=== PATIENT | female | born 1935 | race Caucasian/White ===

== ENCOUNTER 2023-10-15 13:48 | Emergency (ER) | payer MEDICARE, OTHER, SELFPAY ==
[2023-10-15 13:59] VITALS: BP 133/62; BMI 23.1
[2023-10-15 14:23] LABS: Urine Albumin 1+ (Neg - Trace); Urine Bilirubin 1+ (Negative); Urine Character Clear (Clear); Urine Color Yellow; Urine Glucose Negative (Negative); Urine Ketone Trace (Negative); Urine Leukocyte 2+ (Negative); Urine Nitrite Negative (Negative); Urine Occult Blood 2+ (Negative); Urine Specific Gravity 1.025 (<1.030); Urine Urobilinogen 1+ (Neg - 1+)
[2023-10-15 14:31] LABS: Urine Bacteria Moderate (Negative); Urine Squamous Cell 0-2 /LPF (Few)
[2023-10-15 16:54] LABS: % Basophils 0.6 % (0-2); % Eosinophils 1.7 % (0-6); % Immature Granulocytes 0.3 % (0-0.5); % Lymphocytes 23.9 % (20.5-51.1); % Monocytes 5.6 % (1.7-9.3); % Neutrophils 67.9 % (42.2-75.2); Absolute Eosinophils 0.1 10^3/uL (0-0.7); Absolute Lymphocytes 1.6 10^3/uL (1.2-3.4); Absolute Monocytes 0.4 10^3/uL (0.1-0.6); Absolute Neutrophils 4.5 10^3/uL (1.4-6.5); Hemoglobin 13.8 g/dL (12.0-16.0); Mean Corp Hgb Conc. 35.4 g/dL (33.0-37.0); Mean Corpuscular Hgb 31.3 pg (27.0-31.0); Mean Corpuscular Volume 88.4 fL (81.0-99.0); Mean Platelet Volume 9.5 fL (7.4-10.4); Nucleated Red Blood Cells % 0 %; Platelet Count 174 10^3/uL (130-400); Red Blood Cell Count 4.41 10^6/uL (4.20-5.40); Red Cell Dist. Width 13.1 % (11.5-14.5); White Blood Cell Count 6.6 10^3/uL (4.8-10.8)
[2023-10-15 17:23] LABS: ALT (SGPT) 17 U/L (0-35); AST (SGOT) 29 U/L (14-36); Albumin 4.5 g/dl (3.5-5.0); Alkaline Phosphatase 100 U/L (38-126); Blood Urea Nitrogen 23 mg/dl (7-17); Calcium 10.1 mg/dl (8.4-10.2); Carbon Dioxide 30 mmol/L (22-30); Chloride 104 mmol/L (98-107); Estimated Creatinine Clearance 43 ml/min; Glucose 100 mg/dl (70-99); Lipase 76 U/L (23-300); Potassium 4.2 mmol/L (3.5-5.1); Sodium 139 mmol/L (135-145); Total Bilirubin 0.6 mg/dl (0.2-1.3); Total Protein 6.8 g/dl (6.3-8.2); eGFR > 60.00
[2023-10-15] MEDS: KEFLEX 500 MG PO (17:55)
[2023-10-15 18:00] VITALS: BP 151/63
--- NOTE | 2023-10-15 21:56 | ED.GENMED ---
History of Present Illness
General
Chief Complaint: Urinary Symptoms
Source: patient
Exam Limitations: none
Time Seen by Provider: 10/15/23 16:23
Nursing documentation reviewed up to this point in time: agreed with
Travel History
Have you had any contact with someone who has COVID-19?: No
Do you have any symptoms of coronavirus? Fever > 100 degrees, chills, cough, shortness of breath, sore throat, loss of taste or smell, muscle aches, or headache?: No
History of Present Illness
History of Present Illness:
Patient to ED with complaint of dark urine. Noticed symptoms yesterday. No fever/chills, n/v/d. No back or abdominal pain. Brought to ED by daughter for eval.
Past History
Past History
ED Past Medical History: HTN, Hypercholesterolemia, Psychiatric (A/D) and Other (IBS, KIDNEY STONES)
ED Past Surgical History: Appendectomy
Social History
Tobacco: Non-smoker
Alcohol: None
Drug: None
Personal:
Living: with family
Employment: Retired
Family History
Family History: Hypertension
Review of Systems
Review of Systems
Allergies reviewed?: Yes
All Other Systems: ROS reviewed and negative except as documented in HPI and ROS
Constitutional: Reports no symptoms
EENT: Reports no symptoms
Respiratory: Reports no symptoms
Cardiac: Reports no symptoms
ABD/GI: Reports no symptoms
: Reports dark urine
Musculoskeletal: Reports no symptoms
Skin: Reports no symptoms
Neurological: Reports no symptoms
Psychiatric: Reports no symptoms
Phy Exam
General Physical Exam
General Presentation: well appearing and no apparent distress
General age: appears stated age
General Skin: warm
General Habitus: normal
General Mental: alert
Gastrointestinal Exam
Gastrointestinal Exam: normal bowel sounds, non tender, soft, no organomegaly, no pulsatile mass, non distended, no cva tenderness and cva tenderness
Musculoskeletal Exam
Musculoskeletal Exam: full ROM and neuro vasc intact
Skin Exam
Skin Exam: normal color and warm/dry
Psychiatric Exam
Psychiatric Exam: normal mood/affect
Course
Orders/Labs/Results
Orders:
Orders
10/15/23 14:16
Urinalysis Reflex To Culture Urgent
Date Specimen was Collected: 10/15/23
Time Specimen was Collected: 13:58
Urine Microscopic Reflex Cult Urgent
Urine Culture Urgent
DANISH Source: U
Specimen Description:
Date Specimen was Collected: 10/15/23
Time Specimen was Collected: 13:58
10/15/23 16:43
Complete Blood Count/With Diff Urgent
Comprehensive Metabolic Panel Urgent
Lipase Urgent
10/15/23 17:35
Cephalexin Monohydrate [Keflex] 500 mg PO NOW STA
Abnormal Lab Results
10/15/23 10/15/23
14:16 16:43
MCH 31.3 H pg
(27.0-31.0)
BUN 23 H mg/dl
(7-17)
Glucose 100 H mg/dl
(70-99)
Urine Ketones Trace A
(Negative)
Ur Occult Blood Reflex 2+ A
(Negative)
Urine Bilirubin 1+ A
(Negative)
Leukocyte Esterase Rfl 2+ A
(Negative)
Urine RBC 3-6 A /HPF
(0-2)
Urine WBC (Reflex) 11-15 A /HPF
(0-5)
Urine Bacteria (Reflex) Moderate A
(Negative)
Urine Albumin (Reflex) 1+ A
(Neg - Trace)
10/15/23 16:43
10/15/23 16:43
Vital Signs
Initial and Last Documented VS:
Initial Vital Signs
Pulse Resp BP Pulse Ox
88 16 133/62 95
10/15/23 13:59 10/15/23 13:59 10/15/23 13:59 10/15/23 13:59
Last Documented Vital Signs
Pulse Resp BP Pulse Ox
92 16 151/63 95
10/15/23 18:00 10/15/23 18:00 10/15/23 18:00 10/15/23 18:00
*Critical Care Note
Total Time (30-74mins, 75-104mins- exclusive of procedures): Not Applicable
ED Attending Note
-
Portions of this chart may have been created with voice recognition software.� Occasional wrong word or��sound alike� substitutions may have occurred due to the inherent limitations of voice recognition software.
Discharge Plan
Departure
Patient Disposition: Home (Routine Discharge)
Date of Disposition: 10/15/23
Time of Disposition: 17:36
Patient with high blood pressure during this ER visit?: No
Condition: Good
Covid-19: Not Applicable
Discharge Problem:
Urinary tract infection
Instructions: Urinary Tract Infection, Adult (DC)
Prescriptions:
New
cephalexin 500 mg capsule
500 mg PO BID Qty: 10 0RF
No Action
escitalopram oxalate 20 MG tablet
10 mg PO DAILY
amlodipine 5 MG tablet
10 mg PO DAILY
simvastatin 20 MG tablet
20 mg PO QPM
lisinopril 10 MG tablet
10 mg PO DAILY
levothyroxine 112 MCG tablet
112 mcg PO DAILY AT 0700
acetaminophen [Tylenol Extra Strength] 500 MG tablet
1,000 mg PO Q6HPRN PRN (Reason: mild pain) Qty: 1 0RF
Vitamin D3
1 tab PO DAILY
pantoprazole 40 MG tablet,delayed release (DR/EC)
40 mg PO DAILY 0RF
diazepam 5 MG tablet
5 mg PO HS Qty: 2 0RF
Referrals:
West Yuen DO [Family Provider] - Follow up in 2-3 days
Interventions
Interventions:
*Risk Screen - Suicide Last Done: 10/15/23 13:59
*General Assessment Last Done: 10/15/23 18:00
*Neglect/Abuse Screening Last Done: 10/15/23 13:59
ED- Fall Risk Assessment Last Done: 10/15/23 18:00
*ED COVID-19 Vaccine History Last Done: 10/15/23 13:59
*Nursing Disposition Last Done: 10/15/23 18:00
ED-Female Genitourinary Assessment Last Done: 10/15/23 16:47
Discharge Date and Time
Discharge Date/Time: 10/15/23 18:00
== END 2023-10-15 18:00 | disposition home or self-care (01) ==
LOC: EMR 13:48
PROVIDERS: Emergency Medicine; Nurse Practitioner; EMERGENCY PHYSICIAN Emergency Medicine; FAMILY PHYSICIAN Family Medicine
DX: N39.0 Urinary tract infection, site not specified (principal)
CPT/HCPCS: 99283; 80053; 81003; 81015; 83690; 85025; 87086

== ENCOUNTER 2023-11-16 23:17 | Emergency (ER) | payer MEDICARE, OTHER, SELFPAY ==
[2023-11-16 23:19] VITALS: BP 145/68; BMI 23.9
[2023-11-17] VITALS: BP 112/70
--- NOTE | 2023-11-17 00:37 | ED.GENMED ---
History of Present Illness
General
Chief Complaint: Fall
Source: patient and family (Daughter)
Exam Limitations: none
Time Seen by Provider: 11/16/23 23:39
Nursing documentation reviewed up to this point in time: agreed with
Travel History
Have you had any contact with someone who has COVID-19?: No
Do you have any symptoms of coronavirus? Fever > 100 degrees, chills, cough, shortness of breath, sore throat, loss of taste or smell, muscle aches, or headache?: No
History of Present Illness
History of Present Illness:
The patient is an 87-year-old woman brought in by ambulance for a head injury that occurred 4 days ago. Patient reports that she was trying to take her trash out to her neighbor and unfortunately tripped in her living room, hitting the back of her
head. There was no loss consciousness. There are no vision changes. Patient denies nausea and vomiting. She denies neck pain. She reports she felt weak after the fall and had to crawl around but has been able to walk since then. She comes in
with complaints of pain in her head and complains of a bump at the back of her head. She is not on blood thinners. Patient denies any recent cough, fever, shortness of breath, chest pain, and dizziness.
Past History
Past History
ED Past Medical History: HTN, Hypercholesterolemia, Psychiatric (A/D) and Other (IBS, KIDNEY STONES)
ED Past Surgical History: Appendectomy
Social History
Tobacco: Non-smoker
Alcohol: None
Drug: None
Personal:
Living: with family
Employment: Retired
Family History
Family History: Hypertension
Review of Systems
Review of Systems
Allergies reviewed?: Yes
Other source history: family
All Other Systems: ROS reviewed and negative except as documented in HPI and ROS
Constitutional: Reports no symptoms
EENT: Reports no symptoms
Respiratory: Reports no symptoms
Cardiac: Reports no symptoms
ABD/GI: Reports no symptoms
: Reports no symptoms
Musculoskeletal: Reports no symptoms
Skin: Reports no symptoms
Neurological: Reports headache
Hematologic/Lymphatic: Reports no symptoms
Psychiatric: Reports no symptoms
Phy Exam
Physical Exam
Physical Exam:
Physical Exam
General: no apparent distress, not acutely ill conversational
Neck: supple. Nontender
Heart: s1/s2 regular rate and rhythm, no murmur. equal radial pulses.
Lungs: no acute respiratory distress. clear bilaterally, no vertebral spine tenderness
Abdomen: normal bowel sounds. not tender. no CVAT
Neuro: alert and oriented. no focal neurological deficits, extraocular muscles intact. Cranial nerves equal and symmetric bilaterally
Skin: no rash
Psychiatric: well kept. interactive and cooperative
Extremities: no edema. no calf tenderness. negative homans. good distal pulses
Course
Orders/Labs/Results
Orders:
Orders
11/16/23 23:[address] [CT Head W/o Iv Contrast] Urgent
Comment:
Reason For Exam: fall with head strike
11/17/23 00:28
Naproxen [Naprosyn] 500 mg PO NOW STA
Vital Signs
Initial and Last Documented VS:
Initial Vital Signs
Temp Pulse Resp BP Pulse Ox
99.1 F 96 16 145/68 95
11/16/23 23:19 11/16/23 23:19 11/16/23 23:19 11/16/23 23:19 11/16/23 23:19
Last Documented Vital Signs
Temp Pulse Resp BP Pulse Ox
99.1 F 92 16 112/70 92
11/16/23 23:19 11/17/23 00:00 11/17/23 00:00 11/17/23 00:00 11/17/23 00:00
*Radiology
Radiology exam reviewed: radiology read reviewed
*Pulse Oximetry
Patient hypoxic: no
*EKG
Interpreted by ED Provider?: NA
*Engineering Technologist Interpretation
Rate: Engineering Technologist- N/A
*Critical Care Note
Total Time (30-74mins, 75-104mins- exclusive of procedures): Not Applicable
Data Reviewed
Source: family
Patient Management
Social determinants of health affecting care: Living situation and Strong social support
Escalation/DeEscalation of care consider admission/obs:
Patient continues to look look well. CT shows no acute abnormality and patient has not had any nausea, vomiting or dizziness. No C-spine tenderness to suggest C-spine injury patient. she denies all symptoms such as cough, fever, and generalized
weakness therefore, decision made to not do blood work. Patient is clear that it was a mechanical trip and fall
ED Attending Note
-
Portions of this chart may have been created with voice recognition software.� Occasional wrong word or��sound alike� substitutions may have occurred due to the inherent limitations of voice recognition software.
Discharge Plan
Departure
Patient Disposition: Home (Routine Discharge)
Date of Disposition: 11/17/23
Time of Disposition: 00:30
Patient with high blood pressure during this ER visit?: No
Condition: Good
Covid-19: Not Applicable
Discharge Problem:
Closed head injury
Instructions: Head Injury in Adults (DC)
Prescriptions:
No Action
escitalopram oxalate 20 MG tablet
10 mg PO DAILY
amlodipine 5 MG tablet
10 mg PO DAILY
simvastatin 20 MG tablet
20 mg PO QPM
lisinopril 10 MG tablet
10 mg PO DAILY
levothyroxine 112 MCG tablet
112 mcg PO DAILY AT 0700
acetaminophen [Tylenol Extra Strength] 500 MG tablet
1,000 mg PO Q6HPRN PRN (Reason: mild pain) Qty: 1 0RF
Vitamin D3
1 tab PO DAILY
pantoprazole 40 MG tablet,delayed release (DR/EC)
40 mg PO DAILY 0RF
diazepam 5 MG tablet
5 mg PO HS Qty: 2 0RF
cephalexin 500 mg capsule
500 mg PO BID Qty: 10 0RF
Referrals:
UNKNOWN - PT DOES,NOT KNOW [Unknown Provider] -
Activity Restrictions/Additional Instructions:
Return for vision changes or vomiting.
Interventions
Interventions:
*Risk Screen - Suicide Last Done: 11/16/23 23:19
*General Assessment Last Done: 11/16/23 23:19
*Neglect/Abuse Screening Last Done: 11/16/23 23:19
*ED COVID-19 Vaccine History Last Done: 11/16/23 23:19
*Nursing Disposition Last Done: 11/17/23 00:45
ED-Musculoskeletal Assessment Last Done: 11/16/23 23:19
ED- Neurological Assessment Last Done: 11/16/23 23:19
ED-Skin Assessment Last Done: 11/16/23 23:19
Discharge Date and Time
Discharge Date/Time: 11/17/23 00:45
== END 2023-11-17 00:45 | disposition home or self-care (01) ==
LOC: EMR 23:17
PROVIDERS: EMERGENCY PHYSICIAN Emergency Medicine; FAMILY PHYSICIAN Family Medicine
DX: S09.90XA Unspecified injury of head, initial encounter (principal); W01.198A Fall on same level from slipping, tripping and stumbling with subsequent striking against other object, initial encounter
CPT/HCPCS: 99284; 70450

== ENCOUNTER → 2023-12-15 12:51 | Outpatient (REF) | payer MEDICARE, OTHER, SELFPAY | LOC: DHCBC HW 12:51 | PROVIDERS: ATTENDING PHYSICIAN Internal Medicine; FAMILY PHYSICIAN Family Medicine | DX: I44.7 Left bundle-branch block, unspecified (principal); I34.0 Nonrheumatic mitral (valve) insufficiency | CPT/HCPCS: 93306 ==

== ENCOUNTER → 2024-09-27 12:56 | Outpatient (REF) | payer MEDICARE, OTHER, SELFPAY | LOC: HWRCS 12:56 | PROVIDERS: ATTENDING PHYSICIAN Internal Medicine; FAMILY PHYSICIAN Family Medicine | DX: I34.0 Nonrheumatic mitral (valve) insufficiency (principal); I34.2 Nonrheumatic mitral (valve) stenosis | CPT/HCPCS: 93306 ==

== ENCOUNTER 2025-03-01 17:44 | Emergency (ER) | payer MEDICARE, OTHER, SELFPAY ==
[2025-03-01 17:46] VITALS: BP 148/66
[2025-03-01 18:13] LABS: % Basophils 0.3 % (0-2); % Eosinophils 0.6 % (0-6); % Immature Granulocytes 0.2 % (0-0.5); % Lymphocytes 12.9 % (20.5-51.1); % Monocytes 3.9 % (1.7-9.3); % Neutrophils 82.1 % (42.2-75.2); Absolute Eosinophils 0.1 10^3/uL (0-0.7); Absolute Lymphocytes 1.3 10^3/uL (1.2-3.4); Absolute Monocytes 0.4 10^3/uL (0.1-0.6); Absolute Neutrophils 8.5 10^3/uL (1.4-6.5); Hematocrit 42.1 % (37.0-47.0); Hemoglobin 14.5 g/dL (12.0-16.0); Mean Corp Hgb Conc. 34.4 g/dL (33.0-37.0); Mean Corpuscular Hgb 29.7 pg (27.0-31.0); Mean Corpuscular Volume 86.1 fL (81.0-99.0); Mean Platelet Volume 9.9 fL (7.4-10.4); Nucleated Red Blood Cells % 0 %; Platelet Count 161 10^3/uL (130-400); Red Blood Cell Count 4.89 10^6/uL (4.20-5.40); Red Cell Dist. Width 13.2 % (11.5-14.5); White Blood Cell Count 10.3 10^3/uL (4.8-10.8)
[2025-03-01 18:36] LABS: ALT (SGPT) 14 U/L (0-35); AST (SGOT) 20 U/L (14-36); Albumin 4.8 g/dl (3.5-5.0); Alkaline Phosphatase 94 U/L (38-126); Blood Urea Nitrogen 22 mg/dl (7-17); Calcium 10.1 mg/dl (8.4-10.2); Carbon Dioxide 23 mmol/L (22-30); Chloride 110 mmol/L (98-107); Glucose 126 mg/dl (70-99); Lipase 86 U/L (23-300); Potassium 4.1 mmol/L (3.5-5.1); Sodium 143 mmol/L (135-145); Total Bilirubin 0.6 mg/dl (0.2-1.3); Total Protein 7.2 g/dl (6.3-8.2); eGFR > 60.00
--- NOTE | 2025-03-01 20:12 | ED.GENMED ---
History of Present Illness
General
Chief Complaint: Abdominal Pain
Source: patient
Exam Limitations: none
Time Seen by Provider: 03/01/25 19:58
History of Present Illness
History of Present Illness:
See MDM
Past History
Past History
ED Past Medical History: HTN, Hypercholesterolemia, Psychiatric (A/D) and Other (IBS, KIDNEY STONES)
ED Past Surgical History: Appendectomy
Social History
Tobacco: Non-smoker
Alcohol: None
Drug: None
Personal:
Living: with family
Employment: Retired
Family History
Family History: Hypertension
Phy Exam
Physical Exam
Physical Exam:
See MDM
Course
Orders/Labs/Results
Orders:
Orders
03/01/25 17:58
Complete Blood Count/With Diff Urgent
Comprehensive Metabolic Panel Urgent
Lipase Urgent
03/01/25 19:03
Ketorolac [Toradol] 30 mg IV NOW STA
Abnormal Lab Results
03/01/25
17:58
Absolute Neuts (auto) 8.5 H 10^3/uL
(1.4-6.5)
Neutrophils % 82.1 H %
(42.2-75.2)
Lymphocytes % 12.9 L %
(20.5-51.1)
Chloride 110 H mmol/L
(98-107)
BUN 22 H mg/dl
(7-17)
Glucose 126 H mg/dl
(70-99)
03/01/25 17:58
03/01/25 17:58
Vital Signs
Initial and Last Documented VS:
Initial Vital Signs
Temp Pulse Resp BP Pulse Ox
99.1 F 95 20 148/66 94
03/01/25 17:46 03/01/25 17:46 03/01/25 17:46 03/01/25 17:46 03/01/25 17:46
Last Documented Vital Signs
Temp Pulse Resp BP Pulse Ox
99.1 F 95 20 148/66 94
03/01/25 17:46 03/01/25 17:46 03/01/25 17:46 03/01/25 17:46 03/01/25 17:46
MDM/Problems Addressed
Differential Diagnosis Includes:
HPI and MDM Narrative:
89-year-old female presenting with abdominal pain and constipation. Patient states she has had several days of abdominal pain and rectal pressure. She has been having trouble defecating. Patient got nervous because she had a similar symptoms a
few years ago and was diagnosed with a bowel obstruction. Prior to my evaluation, blood work was obtained. By the time I was able to evaluate the patient, she had a large bowel movement and states she feels better. On my exam, she has a soft and
nontender abdomen. She feels comfortable going home. We discussed taking stool softeners daily and intermittent doses of MiraLAX as needed
Physical exam
General: Well appearing and non-toxic
HEENT: protecting airway
Neck: appears supple
CV: No evidence of cyanosis
Resp: No accessory muscle use
Abd: Non-distended. Soft and nontender
Extremities: No deformities
Neuro: alert
Psych: Normal affect
Skin: Intact
Problems Addressed including Acute and Chronic Conditions affecting care:
1. Constipation
Acuity: acute
Prognosis: stable
Details: Symptoms better after large bowel movement. Discussed stool softeners and MiraLAX and adequate hydration
Differential Diagnosis (but not limited to): Constipation, colitis, bowel obstruction
Testing considered: CT abdomen/pelvis but all symptoms resolved after bowel movement
Drug therapy (if applicable): OTC meds, please see d/c instruction regarding Rx drugs
Amount and/or Complexity of Data Reviewed
Clinical info obtained from: Patient
External data reviewed: N/A
Labs I independently reviewed (but not limited to): White blood cell count normal
Radiology: N/A
Pulse Ox: not hypoxic
EKG independently reviewed: N/A
Luggage Attendant: N/A
Critical Care: N/A
Risk of Complication:
Social Determinants of health: Good social support
Discussed with other providers: N/A
Escalation of Care includes Admit/Obs: After being observed in the Emergency Department, pt stable for discharge.
Occasional wrong word or 'sound a like' substitutions may have occurred due to the inherent limitations of voice recognition software. Read the chart carefully and recognize, using context, where substitutions have occurred.
*Pulse Oximetry
SaO2: 94
Oxygen Mode of Delivery: Room air
Patient hypoxic: no
*Critical Care Note
Total Time (30-74mins, 75-104mins- exclusive of procedures): Not Applicable
ED Attending Note
-
Portions of this chart may have been created with voice recognition software.� Occasional wrong word or��sound alike� substitutions may have occurred due to the inherent limitations of voice recognition software.
Discharge Plan
Departure
Patient Disposition: Home (Routine Discharge)
Date of Disposition: 03/01/25
Time of Disposition: 20:12
Patient with high blood pressure during this ER visit?: Yes
Discharge Problem:
Constipation
Instructions: Constipation, Adult (DC), BLOOD PRESSURE
Prescriptions:
No Action
escitalopram oxalate 20 MG tablet
10 mg PO DAILY
amlodipine 5 MG tablet
10 mg PO DAILY
simvastatin 20 MG tablet
20 mg PO QPM
lisinopril 10 MG tablet
10 mg PO DAILY
levothyroxine 112 MCG tablet
112 mcg PO DAILY AT 0700
acetaminophen [Tylenol Extra Strength] 500 MG tablet
1,000 mg PO Q6HPRN PRN (Reason: mild pain) Qty: 1 0RF
Vitamin D3
1 tab PO DAILY
pantoprazole 40 MG tablet,delayed release (DR/EC)
40 mg PO DAILY 0RF
diazepam 5 MG tablet
5 mg PO HS Qty: 2 0RF
cephalexin 500 mg capsule
500 mg PO BID Qty: 10 0RF
Referrals:
West Yuen DO [Family Provider, Family Practice]
Activity Restrictions/Additional Instructions:
Please return for any worsening symptoms.
You may return at any time if you have further concerns.
Please follow up with your doctor at the first available appointment, preferably this week.
Please start taking a daily stool softener. If you go 24 to 48 hours without a bowel movement, please take a dose of MiraLAX.
Thank you for choosing [facility].
Interventions
Interventions:
*Risk Screen - Suicide Last Done: 03/01/25 17:46
*General Assessment Last Done: 03/01/25 17:46
*Neglect/Abuse Screening Last Done: 03/01/25 17:46
*ED COVID-19 Vaccine History Last Done: 03/01/25 18:30
ED-Lwzgmi-Vbgkbssjwu Assessment Last Done: 03/01/25 18:30
Discharge Date and Time
Print Language: YI
== END 2025-03-01 20:30 | disposition home or self-care (01) ==
LOC: EMR 17:44
PROVIDERS: EMERGENCY PHYSICIAN Student in an Organized Health Care Education/Training Program; FAMILY PHYSICIAN Family Medicine
DX: K59.00 Constipation, unspecified (principal); I10 Essential (primary) hypertension; E78.00 Pure hypercholesterolemia, unspecified; K58.9 Irritable bowel syndrome, unspecified; Z90.49 Acquired absence of other specified parts of digestive tract
CPT/HCPCS: 99284; 96374; 80053; 83690; 85025